=== PATIENT | male | born 1930 | race Caucasian/White ===

== ENCOUNTER 2017-07-10 15:56 | Inpatient (IN) | payer SELFPAY ==
[~2017-07-10] VITALS: Ht 182.9 cm; Wt 70.5 kg
[2017-07-10 16:58] LABS: HEMATOCRIT 37.6 % (38.0-50.0); HEMOGLOBIN 12.4 G/DL (12.5-16.6); MCH 29.2 PG (29.0-34.0); MCV 88.7 FL (86-99); PLATELET COUNT 227 K/uL (156-360); RBC DIS.WIDTH-CV 13.8 % (11.8-14.6); RBC DIS.WIDTH-SD 44.9 % (39-53); RED BLOOD COUNT 4.24 M/uL (4.00-5.50); WHITE BLOOD COUNT 26.1 K/uL (4.1-10.2)
[2017-07-10 17:12] LABS: CHLORIDE 107 mEq/L (99-109); POTASSIUM 3.2 mEq/L (3.7-5.4); SODIUM 136 mEq/L (136-147)
[2017-07-10 17:14] LABS: GLUCOSE 123 mg/dL (70-99)
[2017-07-10 17:18] LABS: CREATININE 0.9 mg/dL (0.6-1.3)
[2017-07-10 17:19] LABS: UREA NITROGEN (BUN) 24 mg/dL (9-23)
[2017-07-10 17:20] LABS: GFR ESTIMATE (CALCULATED) > 59 mL/min/ (58.99-99999)
[2017-07-10] MEDS ORDERED: CELEXA10 MG PO (18:56)
[2017-07-10] MEDS ORDERED: HALDOL1 MG PO (18:56)
[2017-07-10] MEDS ORDERED: ASPIR 8181 M1 PO (18:56)
[2017-07-10] MEDS ORDERED: ATARAX,VISTARIL25 MG PO (18:57)
[2017-07-10] MEDS ORDERED: IBUPROFEN400 MG PO (20:01)
[2017-07-10] MEDS ORDERED: TYLENOL ARTHRI650 MG PO (20:02)
[2017-07-10] MEDS ORDERED: KENALOG,ARISTOC80 G1 TP (20:03)
[2017-07-10] MEDS ORDERED: ASPERCREME 1035.4 GM TP (20:05)
[2017-07-10] MEDS ORDERED: TUSSIN DM LIQU118 ML PO (20:06)
[2017-07-10 22:14] LABS: BASE EXCESS -5.5 mEq/L (-3 to +3); CARBOXY HGB 2.4 % (0-5); METHEMOGLOBIN 1.9 % (0-1.5); PCO2 29 mm Hg (35-45); PO2 56 mm Hg (80-100)
[2017-07-10 22:15] LABS: COMMENTS - BLOOD GASES A+C+; DEVICE NC; O2 FLOW 2 L/MIN; SITE RR; TOTAL RESP RATE 24 resp/min
[2017-07-10 22:30] VITALS: BP 162/84
[2017-07-10 22:39] LABS: CHLORIDE 106 MEQ/L (99-109); POTASSIUM 3.2 MEQ/L (3.7-5.4); SODIUM 141 MEQ/L (136-147)
[2017-07-10 22:44] LABS: CREATININE 0.9 MG/DL (0.6-1.3); GFR ESTIMATE (CALCULATED) > 59 mL/min/ (58.99-99999); GLUCOSE 140 mg/dL (70-99); UREA NITROGEN (BUN) 21 mg/dL (9-23)
[2017-07-11 03:41] VITALS: BP 158/77
[2017-07-11 06:31] LABS: HEMATOCRIT 32.5 % (38.0-50.0); HEMOGLOBIN 10.5 G/DL (12.5-16.6); MCH 29.2 PG (29.0-34.0); MCHC 32.3 G/DL (30.0-36.0); MCV 90.5 FL (86-99); PLATELET COUNT 202 K/uL (156-360); RBC DIS.WIDTH-CV 13.8 % (11.8-14.6); RBC DIS.WIDTH-SD 45.4 % (39-53); RED BLOOD COUNT 3.59 M/uL (4.00-5.50); WHITE BLOOD COUNT 21.8 K/uL (4.1-10.2)
[2017-07-11 07:01] LABS: CHLORIDE 113 MEQ/L (99-109); CREATININE 0.8 MG/DL (0.6-1.3); GFR ESTIMATE (CALCULATED) > 59 mL/min/ (58.99-99999); GLUCOSE 159 mg/dL (70-99); POTASSIUM 3.2 MEQ/L (3.7-5.4); SODIUM 144 MEQ/L (136-147); UREA NITROGEN (BUN) 18 mg/dL (9-23)
[2017-07-11 07:41] LABS: BASOPHIL (%) 0.1 % (0-1); EOSINOPHIL (%) 0 % (0-5); HEMATOLOGY COMMENT 1 SMEAR COMPATIBLE; IMMATURE GRANULOCYTE (%) 0.4 % (0.0-0.7); LYMPHOCYTE (%) 10.4 % (15-42); LYMPHOCYTE COUNT 2.3 K/uL (1.0-2.8); MONOCYTE (%) 2.4 % (3-12); MONOCYTE COUNT 0.5 K/uL (0-0.8); NEUTROPHIL (%) 86.7 % (45-76); NEUTROPHIL COUNT 18.9 K/uL (1.8-6.4)
[2017-07-12 08:05] VITALS: BP 152/65
[2017-07-12 09:00] LABS: BASOPHIL (%) 0.2 % (0-1); BASOPHIL COUNT 0.1 K/uL (0-0.1); EOSINOPHIL (%) 0 % (0-5); HEMATOCRIT 35.9 % (38.0-50.0); HEMOGLOBIN 11.7 G/DL (12.5-16.6); IMMATURE GRANULOCYTE (%) 0.7 % (0.0-0.7); LYMPHOCYTE (%) 11.1 % (15-42); LYMPHOCYTE COUNT 2.9 K/uL (1.0-2.8); MCH 29.3 PG (29.0-34.0); MCHC 32.6 G/DL (30.0-36.0); MCV 89.8 FL (86-99); MONOCYTE COUNT 0.5 K/uL (0-0.8); NEUTROPHIL COUNT 22.7 K/uL (1.8-6.4); PLATELET COUNT 255 K/uL (156-360); WHITE BLOOD COUNT 26.3 K/uL (4.1-10.2)
[2017-07-12 09:29] LABS: CHLORIDE 113 MEQ/L (99-109); CREATININE 0.8 MG/DL (0.6-1.3); GFR ESTIMATE (CALCULATED) > 59 mL/min/ (58.99-99999); GLUCOSE 145 mg/dL (70-99); POTASSIUM 3.3 MEQ/L (3.7-5.4); SODIUM 148 MEQ/L (136-147)
[2017-07-12 09:36] LABS: UREA NITROGEN (BUN) 31 mg/dL (9-23)
[2017-07-12 15:36] VITALS: BP 116/57
[2017-07-12 23:25] VITALS: BP 137/63
[2017-07-13 06:48] LABS: CHLORIDE 113 MEQ/L (99-109); CREATININE 0.9 MG/DL (0.6-1.3); GFR ESTIMATE (CALCULATED) > 59 mL/min/ (58.99-99999); GLUCOSE 129 mg/dL (70-99); POTASSIUM 3.5 MEQ/L (3.7-5.4); SODIUM 146 MEQ/L (136-147); UREA NITROGEN (BUN) 28 mg/dL (9-23)
[2017-07-13 08:33] VITALS: BP 132/84
[2017-07-13] MEDS ORDERED: AUGMENTIN875 MG PO (11:49)
[2017-07-13] MEDS ORDERED: FLORASTOR250 MG PO (11:49)
[2017-07-13] MEDS ORDERED: DOXYCYCLINE HY100 M3 PO (11:49)
[2017-07-13] MEDS ORDERED: LORAZEPAM0.5 MG PO (11:49)
== END 2017-07-13 14:50 | disposition home or self-care (01) | DRG 871 ==
LOC: EME 15:56 → EDOF 20:59 → 2EAST 20:59 → ENRESERV 21:02 → 2EAST 21:44
PROVIDERS: Family Medicine; Hospitalist
DX: A41.9 Sepsis, unspecified organism (principal); R65.20 Severe sepsis without septic shock; J69.0 Pneumonitis due to inhalation of food and vomit; J96.01 Acute respiratory failure with hypoxia; E87.6 Hypokalemia; F03.91 Unspecified dementia, unspecified severity, with behavioral disturbance; F41.9 Anxiety disorder, unspecified; M19.90 Unspecified osteoarthritis, unspecified site; Z66 Do not resuscitate
CPT/HCPCS: 36600; 71010; 71020; 80048; 80048 91; 81003; 82803; 83605; 83880; 85025; 85027; 87040; 94640; 94640 76; 94799; 99202; 99281; 99285; J0456; J0696; J1630; J1650; J1940; J2543; J2930; J7030; J7050; Q0177